=== PATIENT | male | born 1950 | race African-American/Black ===

== ENCOUNTER → 2025-02-09 | Outpatient (RCR) | payer MEDICARE | LOC: RESP 01-12 17:59 | DX: J44.9 Chronic obstructive pulmonary disease, unspecified (principal) | CPT/HCPCS: 94626 ×9; G0238 ×9 ==

== ENCOUNTER 2025-03-11 09:00 | Outpatient (RCR) | payer MEDICARE | END 2025-03-12 | LOC: RESP 09:00 | DX: J44.9 Chronic obstructive pulmonary disease, unspecified (principal) | CPT/HCPCS: 94626 ×9; G0238 ×9 ==

== ENCOUNTER 2025-04-08 09:00 | Outpatient (RCR) | payer MEDICARE | END 2025-04-12 | LOC: RESP 09:00 | PROVIDERS: ATTEND Internal Medicine Critical Care Medicine | DX: J44.9 Chronic obstructive pulmonary disease, unspecified (principal) | CPT/HCPCS: 94626 ×5; G0238 ×5 ==

== ENCOUNTER 2025-05-11 09:00 | Outpatient (RCR) | payer MEDICARE | END 2025-05-12 | LOC: RESP 09:00 | PROVIDERS: ATTEND Internal Medicine Critical Care Medicine | DX: J44.9 Chronic obstructive pulmonary disease, unspecified (principal) | CPT/HCPCS: 94626 ×2; G0238 ×2 ==